=== PATIENT | female | born 1985 | race Caucasian/White ===

== ENCOUNTER 2019-02-17 10:32 | Observation (INO) | payer MEDICAID ==
[~2019-02-17] VITALS: Ht 167.6 cm; Wt 70.3 kg
[2019-02-17 10:40] VITALS: BP 110/68
[2019-02-17] MEDS ORDERED: PREN-96 PO (11:17)
[2019-02-17] MEDS ORDERED: TERBUTALINE SULFATE 1 MG/ML 1ML VIAL SC ONE (11:31)
[2019-02-17] MEDS: TERBUTALINE SULFATE 1 MG/ML 1ML VIAL SC SCH ×2 (11:34→12:23)
== END 2019-02-17 12:50 | disposition home or self-care (01) | DRG 566 ==
LOC: ER 10:36 → LDRP 10:50
PROVIDERS: ADMIT Obstetrics & Gynecology; ATTEND Obstetrics & Gynecology
DX: O62.9 Abnormality of forces of labor, unspecified (principal); Z3A.28 28 weeks gestation of pregnancy
CPT/HCPCS: 59025; 76815; 81002; 96372; 99284; G0378; J3105